=== PATIENT | male | born 1950 | race Caucasian/White ===

== ENCOUNTER 2023-08-29 11:39 | Outpatient (CLI) | payer MEDICARE, SELFPAY | END 2023-08-29 11:40 | disposition home or self-care (01) | LOC: AMB 09-04 06:27 | PROVIDERS: Visit Provider Family Medicine | DX: R41.82 Altered mental status, unspecified (principal); M43.6 Torticollis; R53.1 Weakness | CPT/HCPCS: A0425; A0427 ==

== ENCOUNTER 2023-08-29 12:12 | Observation (INO) | payer MEDICARE, SELFPAY ==
[2023-08-29] VITALS (21 sets, daily range): BP systolic 98–135; BP diastolic 63–89; PULSE 77–97; RESP 12–16; TEMP 35.8–36.5; O2SAT 94–99; BMI 31.0; BMI 30.6
--- NOTE | 2023-08-29 13:01 | CT_ITS ---
Patient: RENNY LICONA Facility:?[facility] Patient ID:?[id number] Site Patient ID:?[id number]. Site :?1950 Study:?CT-Head Angio W/ 95CC [id number]/31/2024 1:26:20 PM Ordering Physician:Royce Kent Final Report: CLINICAL HISTORY: Syncope, right-sided weakness. TECHNIQUE: Standard helical CT image acquisition through the head following the administration of intravenous contrast was performed. 3D and MIP reconstructions were performed at a separate workstation and permanently archived. COMPARISON: None available. 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 Scattered intracranial atherosclerotic disease without flow-limiting luminal stenosis. No evidence of cerebral aneurysm. No findings to suggest an arterial-venous shunting lesion. 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 This is of unknown chronicity. Please note that all CT scans at this facility use dose modulation, iterative reconstruction, and/or weight-based dosing when appropriate to reduce radiation dose to as low as reasonably achievable. Dictated by Sravan Zamora MD @ 08/29/2023 2:03:32 PM Signed by:?Sravan Zamora MD @08/29/2023 2:03:32 PM (Electronic Signature)
--- NOTE | 2023-08-29 13:01 | CT_ITS ---
Patient: RENNY LICONA Facility:?[facility] Patient ID:?[id number] Site Patient ID:?[id number]. Site :?1950 Study:?CT-Neck Angio Angio W/ 95CC [id number]/31/2024 1:26:17 PM Ordering Physician:Royce Kent Final Report: CLINICAL HISTORY: Right-sided weakness. TECHNIQUE: Standard helical CT image acquisition through the neck was performed after intravenous contrast bolus enhancement. 3D and MIP reconstructions were performed at a separate workstation and permanently archived. COMPARISON: None available. FINDINGS in the inferior pole of the : The origins of the great vessels from the aortic arch are patent. The common carotid arteries are patent. No significant luminal stenoses of the proximal ICAs by NASCET criteria. The more distal cervical segments of the ICAs are patent. Mild stenosis at the origin of left vertebral artery and moderate stenosis at the origin of the right vertebral artery. The cervical segments of the vertebral arteries are patent. 1.7 cm hypodense nodule in the inferior pole of the left lobe of the thyroid gland. IMPRESSION: 1. Moderate and mild stenoses at the origins of the right and left vertebral arteries, respectively. 2. 1.7 cm hypodense nodule in the inferior pole of the left lobe of the thyroid gland. Further assessment with thyroid ultrasound is recommended on a nonemergent basis. Please note that all CT scans at this facility use dose modulation, iterative reconstruction, and/or weight-based dosing when appropriate to reduce radiation dose to as low as reasonably achievable. Dictated by Sravan Zamora MD @ 08/29/2023 1:57:44 PM Signed by:?Sravan Zamora MD @08/29/2023 1:57:44 PM (Electronic Signature)
--- NOTE | 2023-08-29 13:03 | CT_ITS ---
Patient: RENNY LICONA Facility:?[facility] Patient ID:?[id number] Site Patient ID:?[id number]. Site :?1950 Study:?CT-Head STROKE PROTOCOL-08/29/2023 1:22:05 PM Ordering Physician:Royce Kent Final Report: CLINICAL HISTORY: Right-sided weakness. TECHNIQUE: Standard helical CT image acquisition through the head was performed. COMPARISON: None available. FINDINGS: No CT evidence of acute intracranial hemorrhage, extra-axial collection, mass effect or midline shift. Vargas-white matter differentiation is preserved. Mild generalized parenchymal volume loss with resultant prominence of cerebral sulci and the ventricular system. Patchy hypoattenuation in the white matter of both hemispheres likely reflects sequela of chronic small vessel ischemia. Intracranial atherosclerotic calcification. The calvarium is unremarkable. Thinning of the ocular lenses. Prior functional endoscopic sinonasal surgery. Mild mucosal thickening of the [id number]-[id number]-[id number]-right maxillary sinuses. Mucosal thickening of the residual ethmoid air cells. IMPRESSION: 1. No CT evidence of acute intracranial abnormality. 2. Senescent changes generalized parenchymal volume loss and findings likely reflecting sequela of chronic small-vessel ischemia. Please note that all CT scans at this facility use dose modulation, iterative reconstruction, and/or weight-based dosing when appropriate to reduce radiation dose to as low as reasonably achievable. Dictated by Sravan Zamora MD @ 08/29/2023 1:53:33 PM Signed by:?Sravan Zamora MD @08/29/2023 1:53:33 PM (Electronic Signature)
--- NOTE | 2023-08-29 13:06 | ED_ITS ---
HPI - General Adult General Chief complaint: Unspecified Complaint, Adult Stated complaint: Near syncopal Time Seen by Provider: 08/29/23 12:46 History of Present Illness HPI narrative: Patient is a 73 white male who 2 days ago had bunion surgery on his left leg, he has been off his anticoagulant, and yet to restart. He does have chronic atrial fibrillation. He was eating brunch today and passed out and family noticed he was weak on his right arm. He was brought in by ambulance. He feels fine at this time no chest pain no weakness. Family notes that he still a little slow to respond does not seem as sharp mentally as he has been after this event. He specifically denies any chest pain, breathing difficulty, leg swelling or pain. He has been taking Percocet for his bunion surgery, he takes about 3 a day. He has not had any ill effect to his knowledge from that. He reports he has been eating and drinking adequately. No other specific complaints. Patient is now awake alert and has no focal neurologic findings or complaint Related Data Home Medications Medication Instructions Recorded Confirmed allopurinol 100 mg tablet 200 mg PO DAILY 08/29/23 08/29/23 atenolol 100 mg tablet 100 mg PO DAILY 08/29/23 08/29/23 atorvastatin 20 mg tablet 20 mg PO DAILY 08/29/23 08/29/23 cephalexin 500 mg capsule 500 mg PO TID 08/29/23 08/29/23 doxycycline hyclate 100 mg capsule 100 mg PO BID 08/29/23 08/29/23 folic acid 1 mg tablet 1 mg PO DAILY 08/29/23 08/29/23 hydrochlorothiazide 50 mg tablet 50 mg PO DAILY 08/29/23 08/29/23 hydroxyzine pamoate 25 mg capsule 25 - 50 mg PO Q6H PRN 08/29/23 08/29/23 latanoprost 0.005 % eye drops 1 drp ophthalmic (eye) HS 08/29/23 08/29/23 methotrexate sodium 2.5 mg tablet 25 mg PO Q7D 08/29/23 08/29/23 oxycodone-acetaminophen 5 mg-325 1 - 2 tab PO Q6H PRN 08/29/23 08/29/23 mg tablet rivaroxaban 20 mg tablet (Xarelto) 20 mg PO QPM 08/29/23 08/29/23 Allergies Allergy/AdvReac Type Severity Reaction Status Date / Time Sulfa (Sulfonamide Allergy Unknown Hives Verified 08/29/23 12:16 Antibiotics) Review of Systems Status of ROS: Reports: 6 or more systems reviewed and unremarkable except as noted in History and below [facility] Social History Smoking Status: Never smoker How often do you have a drink containing alcohol: never AUDIT-C Alcohol total score: 0 Non-prescribed substance use: denies use Exam Narrative: Exam Narrative: Objective: Vital signs are within normal limits He is alert orient x3, he is mental status appears appropriate, he does struggle to find a but should be relatively common answer such as where his daughter lives and where he is having brunch. HEENT no facial asymmetry extra movements intact Mouth clear Neck is supple Chest clear Heart irregular regular with 2/6 systolic murmur no marked ectopy noted Abdomen benign soft Extremities he is moving all extremities well he is able to lift both legs off the ground he has got good hand grasp bilaterally no pronator drift extremity no drift with his arms extended, or legs elevated. Normal peripheral sensation Const: Vital Signs, click to edit/add: Vital Signs - 24 hr 08/29/23 12:15 08/29/23 12:33 08/29/23 12:35 Temperature 96.4 F L Pulse Rate 79 Pulse Rate [Pulse Oximeter] 77 Respiratory Rate 14 14 Blood Pressure 112/73 Blood Pressure [Le ft Upper Arm] 123/78 Pulse Oximetry 96 99 98 Oxygen Delivery Me thod Room Air 08/29/23 13:02 08/29/23 13:35 08/29/23 13:47 Temperature Pulse Rate 86 91 88 Pulse Rate [Pulse Oximeter] Respiratory Rate 12 14 12 Blood Pressure 119/87 121/89 109/70 Blood Pressure [Le ft Upper Arm] Pulse Oximetry 95 98 98 Oxygen Delivery Me thod Course Vital Signs Vital signs: Initial Vital Signs Temperature 96.4 F L 08/29/23 12:15 Temperature Source Temporal Artery Scan 08/29/23 12:15 Pulse Rate 77 08/29/23 12:15 Pulse Rhythm Regular 08/29/23 12:15 Respiratory Rate 14 08/29/23 12:15 Blood Pressure 123/78 08/29/23 12:15 Blood Pressure Mean 93 08/29/23 12:15 Blood Pressure Position Supine 08/29/23 12:15 Pulse Oximetry 96 08/29/23 12:15 Oxygen Delivery Method Room Air 08/29/23 12:15 Vital Signs Temperature 96.4 F L 08/29/23 12:15 Pulse Rate 77 08/29/23 12:15 Respiratory Rate 14 08/29/23 12:15 Blood Pressure 123/78 08/29/23 12:15 Pulse Oximetry 96 08/29/23 12:15 Oxygen Delivery Method Room Air 08/29/23 12:15 Temperature 96.4 F L 08/29/23 12:15 Pulse Rate 88 08/29/23 13:47 Respiratory Rate 12 08/29/23 13:47 Blood Pressure 109/70 08/29/23 13:47 Pulse Oximetry 98 08/29/23 13:47 Oxygen Delivery Method Room Air 08/29/23 12:15 Medications Administered Medications: Discontinued Medications Generic Name Dose Route Start Last Admin Trade Name Freq PRN Reason Stop Dose Admin Sodium Chloride 500 mls @ 500 mls/hr 08/29/23 13:01 08/29/23 14:25 0.9 % Sodium Chloride 500 Ml IV 08/29/23 14:00 Infused .Q1H ONE Infusion Levetiracetam 1,500 mg/ Sodium 115 mls @ 460 mls/hr 08/29/23 15:17 08/29/23 15:37 Chloride IVPB 08/29/23 15:18 460 mls/hr ONCE ONE Administration Medical Decision Making MDM Narrative Medical decision making narrative: [age] year white male with a history of recent bunion surgery, on Percocet for pain, with a history of some type of [employer] event in the past, with a brief syncopal episode with right-sided arm weakness. At this point stroke neurology was consulted he will get us stat CTA CT, head CT scan, would also get a CT scan of his chest to rule out PE given he has been off his Xarelto, and also get electrolytes and labs. Will give IV fluid. Disposition pending findings above Addendum 3:42 p.m.: The patient was felt by Dr. Stewart to have had a seizure. He recommended loading with Keppra which will be done here in the ER and then start 750 mg b.i.d.. Recommended an MRI scan as well. I think given the patient's unknown etiology of his syncopal episode and the fact that could be arrhythmia or other issue I think we should keep him in the hospital, do serial troponins, telemetry. Would recommend an MRI scan as an inpatient tomorrow. Discussed with Dr. Duval who kindly accepts in admission. Family was comfortable assessment and plan as well. Lab Data Labs: Lab Results 08/29/23 08/29/23 Range/Units 13:07 15:34 WBC 7.72 (4.50-11.00) K/uL RBC 3.37 L (4.30-5.90) m/uL Hgb 12.8 L (13.5-17.5) gm/dL Hct 37.2 (37.0-53.0) % MCV 110 H (80-100) fL MCH 38 H (26-34) pg MCHC 34 (32-36) gm/dL RDW Coeff of Dewayne 15.0 (11.5-15.5) % Plt Count 149 (140-440) K/uL Neut % (Auto) 75.1 H (42.0-72.0) % Lymph % (Auto) 17.6 L (20-44) % Antelope % (Auto) 5.3 (0.0-11.0) % Eos % (Auto) 1.2 (0.0-7.0) % Baso % (Auto) 0.5 (0.0-3.0) % Neut # (Auto) 5.80 (1.7-7.0) K/uL Lymph # (Auto) 1.40 (0.90-2.90) K/uL Antelope # (Auto) 0.40 (0.00-0.90) K/UL Eos # (Auto) 0.09 (0.00-0.50) K/uL Baso # (Auto) 0.04 (0.00-0.30) K/uL Abs Immat Gran (auto) 0.02 (0.00-0.30) K/uL Imm/Tot Granulo (auto) 0.3 % Diff Slide Review Acceptable Review (Acceptable) Sodium 129 L (135-149) mmol/L Potassium 3.7 (3.6-5.1) mmol/L Chloride 94 L (96-114) mmol/L Carbon Dioxide 28 (20-32) mmol/L Anion Gap 7 (7-15) mEq/L BUN 36 H (7-30) mg/dL Creatinine 1.4 (0.5-1.5) mg/dL Estimated Creat Clear 46.14 Estimated GFR 53 ml/min Glucose 100 (60-115) mg/dL Lactate 1.8 (0.5-1.9) mmol/L Calcium 9.5 (8.4-10.6) mg/dL Total Bilirubin 1.1 (0.1-1.5) mg/dL Direct Bilirubin 0.3 (0.0-0.5) mg/dL AST 46 H (12-35) U/L ALT 23 (4-50) U/L Alkaline Phosphatase 71 (40-150) U/L Troponin I < 0.01 L (0.01-0.04) ng/mL C-Reactive Protein 1.0 (0.5-1.0) mg/dL Total Protein 6.6 (6.0-8.3) g/dL Albumin 3.9 (3.3-5.0) g/dL Lab Acknowledgement Test Added Discharge Plan Discharge Clinical Impression: Syncope, Right arm weakness, Seizure Patient Disposition: Admitted As Observation
[2023-08-29 13:12] LABS: Lactate* 1.8 mmol/L (0.5-1.9)
[2023-08-29 13:13] LABS: Basophils Absolute Auto 0.04 K/uL (0.00-0.30); Basophils Percent Auto 0.5 % (0.0-3.0); Eosinophils Absolute Auto 0.09 K/uL (0.00-0.50); Eosinophils Percent Auto 1.2 % (0.0-7.0); Hematocrit 37.2 % (37.0-53.0); Hemoglobin* 12.8 gm/dL (13.5-17.5); Immature Granulocytes Abs Auto 0.02 K/uL (0.00-0.30); Immature Granulocytes Pct Auto 0.3 %; Lymphocytes Percent Auto 17.6 % (20-44); Mean Corpuscular HGB Conc 34 gm/dL (32-36); Mean Corpuscular Hemoglobin 38 pg (26-34); Mean Corpuscular Volume 110 fL (80-100); Monocytes Percent Auto 5.3 % (0.0-11.0); Neutrophils Percent Auto 75.1 % (42.0-72.0); Platelet Count* 149 K/uL (140-440); Red Blood Count 3.37 m/uL (4.30-5.90); White Blood Count* 7.72 K/uL (4.50-11.00)
[2023-08-29 13:18] LABS: Slide Review Acceptable Review (Acceptable); Slide Review Reflex Yes
[2023-08-29] MEDS: 0.9 % SODIUM CHLORIDE 500 ML 500 ML IV (13:25)
[2023-08-29 13:45] LABS: Albumin* 3.9 g/dL (3.3-5.0); Chloride* 94 mmol/L (96-114)
[2023-08-29 13:46] LABS: Potassium* 3.7 mmol/L (3.6-5.1); Sodium* 129 mmol/L (135-149)
[2023-08-29 13:48] LABS: Anion Gap 7 mEq/L (7-15); Aspartate Amino Transferase* 46 U/L (12-35); Bilirubin Direct* 0.3 mg/dL (0.0-0.5); Bilirubin Total* 1.1 mg/dL (0.1-1.5); Carbon Dioxide* 28 mmol/L (20-32); Creatinine* 1.4 mg/dL (0.5-1.5); Est. Creatinine Clearance* 46.14; Estimated Glomerular Filt Rate 53 ml/min; Total Protein* 6.6 g/dL (6.0-8.3)
[2023-08-29 13:49] LABS: Alanine Aminotransferase* 23 U/L (4-50); Alkaline Phosphatase* 71 U/L (40-150); Blood Urea Nitrogen* 36 mg/dL (7-30); Calcium* 9.5 mg/dL (8.4-10.6); Glucose* 100 mg/dL (60-115)
[2023-08-29 14:02] LABS: Troponin I* < 0.01 ng/mL (0.01-0.04)
[2023-08-29 15:59] LABS: Ethanol* < 0.01 % (0.01-0.03); Magnesium* 1.9 mg/dL (1.5-2.6)
[2023-08-29] MEDS: THIAMINE 100 MG TABLET PO (18:42)
[2023-08-29] MEDS: NICOTINE 21 MG PATCH 1 PATCH TRANSDERMA (18:42)
--- NOTE | 2023-08-29 19:13 | PC.NURSE ---
End of shift: Patient alert and oriented x4. [place]. refuses to wear hearing aides. Patient on CIWA, scored 0 3x. Patient on seizure precautions, pads in room. Patient on Tele, hx of AFIB. Patient can ambulate SBA to BR. Nicotine patch to left shoulder. IV in right AC- SL. Patient on RA tolerating a reg. diet.
--- NOTE | 2023-08-29 19:27 | PM.IMHP1 ---
Hospitalist- H&P: HPI History of Present Illness Time Seen by Provider: 18:00 Date Seen: 08/29/23 Chief complaint: Near syncopal Narrative: Remy Freire is a 73 year old male with a history of a small atrial fibrillation for which he is on chronic anticoagulation, seronegative rheumatoid arthritis for which he is on methotrexate, type 2 diabetes mellitus, history of alcohol abuse, falls, confusion, and gout who had an episode of syncope and right arm weakness this morning. His symptoms have now completely resolved. He had left foot bunion surgery 2 days ago for which he had had a preop physical a few days before that. He was feeling well and in his usual state of health. He had stopped his Xarelto in preparation for surgery and has not yet restarted it because he had what he describes is a lot of bleeding yesterday from the wound. He put fresh dressings on it yesterday and those have stayed clean. He went to a restaurant with his daughter and son-in-law this morning for Easter breakfast. They noticed that he suddenly put his head down and was rolling his head and shoulders like his neck was hurting. This time his right arm was not working at all. His family describes that his eyes were open but he was not responding to them. He seem to have slumped over. This lasted somewhere between 10 and 15 minutes and then resolved completely. He tells me that he had a similar episode a few weeks ago that was unwitnessed, but remembers that his neck was hurting in a similar fashion and then it suddenly went away. He has a history of alcohol abuse and his daughter spoke with me outside of his room, stating that he has abused alcohol his entire adult life and has had frequent falls and confusion as a result of it. She tells me that she finds bottles of black good whiskey all over the house and that she and her brother have noticed that he seems drunk at times even recently. I asked Remy about his alcohol use and he stated that he quit I here and a half ago. With the recent of his about 1 month ago, he has been tempted to drink again however he tells me he has been strong and has not. He came to the emergency department for this episode and was seen in consultation by Dr. Dela Cruz from the tele neurology for concern of stroke. 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 This is of unknown chronicity. Dr. Dela Cruz suspects that this was a focal complex seizure with neck stiffness prodrome and has recommended an MRI, onle Forman for 3 months, and follow up with Neurology as an outpatient. 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 - Chronic gout, unspecified, with tophus (tophi) (ICD-10) Methotrexate, longterm, current use ?Z79.631 - [facility]FP (current) use of antimetabolite agent (ICD-10) Anticoagulant long-term use ?Z79.01 - MCFP (current) use of anticoagulants (ICD-10) Seronegative rheumatoid arthritis ?M06.00 - Rheumatoid arthritis without rheumatoid factor, unspecified site (ICD-10) Hypomagnesemia ?E83.42 - Hypomagnesemia (ICD-10) Confusion ?R41.0 - Disorientation, unspecified (ICD-10) Falls ?W19.XXXA - Unspecified fall, initial encounter (ICD-10) Primary open angle glaucoma (POAG) of both eyes, moderate stage ?H40.1132 - Primary open-angle glaucoma, bilateral, moderate stage (ICD-10) Pseudoexfoliation (PXF) of left lens capsule ?H26.8 - Other specified cataract (ICD-10) Keratitis ?H16.9 - Unspecified keratitis (ICD-10) Meibomian gland dysfunction (MGD) of upper and lower lids of both eyes ?H02.88A - Meibomian gland dysfunction right eye, upper and lower eyelids (ICD-10) ?H02.88B - Meibomian gland dysfunction left eye, upper and lower eyelids (ICD-10) Thyroid nodule ?E04.1 - Nontoxic single thyroid nodule (ICD-10) Tobacco use ?Z72.0 - Tobacco use (ICD-10) Hypercholesterolemia ?E78.00 - Pure hypercholesterolemia, unspecified (ICD-10) Atrial fibrillation ?I48.91 - Unspecified atrial fibrillation (ICD-10) Hypertension ?I10 - Essential (primary) hypertension (ICD-10) Alcohol abuse ?F10.10 - Alcohol abuse, uncomplicated (ICD-10) Surgical History (Updated 08/29/23 @ 23:43 by Nata Duval MD) H/O foot surgery ?Z98.890 - Other specified postprocedural states (ICD-10) S/P YAG capsulotomy, right ?Z98.890 - Other specified postprocedural states (ICD-10) H/O vasectomy ?Z98.52 - Vasectomy status (ICD-10) H/O inguinal hernia repair ?Z98.890 - Other specified postprocedural states (ICD-10) ?Z87.19 - Personal history of other diseases of the digestive system (ICD-10) H/O arthroscopic knee surgery ?Z98.890 - Other specified postprocedural states (ICD-10) Hx of colonoscopy ?Z98.890 - Other specified postprocedural states (ICD-10) H/O cataract extraction ?Z98.49 - Cataract extraction status, unspecified eye (ICD-10) History of back surgery ?Z98.890 - Other specified postprocedural states (ICD-10) Family History (Updated 08/29/23 @ 19:51 by Nata Duval MD) Mother Stroke High blood pressure Father Stroke High blood pressure Social History (Updated 08/29/23 @ 20:03 by Nata Duval MD) Narrative: 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 of glioblastoma about a month ago. Patient reports 0.5 ppd tobacco use, his daughter and her say he smokes a cigarette every 20-30 minutes. His daughter also says he drinks a lot, has a long h/o EtOH abuse and she finds bottles around his house and he appears drunk at times. Patient states he quit alcohol 1.5 years ago and has been tempted to restart, but has stayed strong. He notes a lot of support from his neighbors. He denies recreational drug use. FULL CODE. What is your current living situation?: I presently have a place to live Problems where you live: no known problems Problems where you live details: No known problems In the past 12 months, utilities in danger of being shut off: no In past 12 months, lack of transportation kept you from medical appts, meetings, work, or getting things needed for daily living: no In the past 12 mos, have been you worried that your food would run out before you had money to buy more?: never true In the past 12 mos, the food you bought just didn't last and you didn't have money to buy more?: never true Highest level of school completed/degree received: high school graduate Smoking Status: Current every day smoker What tobacco products do you use: cigarettes Smoking packs per day: 1 Smoking cigarettes per day: 20.0 How often do you have a drink containing alcohol: 2-3 times a week Alcohol type: hard liquor Alcohol type details: Kids have found Whiskey hidden. Jul 11 2023. How many standard drinks containing alcohol do you have on a typical day: 5 or 6 How often do you have six or more drinks on one occasion: Weekly AUDIT-C Alcohol total score: 8 Non-prescribed substance use: denies use Caffeine: Yes How often does anyone, including family, friends and others, physically hurt you: never How often does anyone, including family, friends and others, insult or talk down to you: never How often does anyone, including family, friends and others, threaten you with harm: never How often does anyone, including family, friends and others, scream or curse at you: never service: No Meds Home Medications and Allergies Home Medications Medication Instructions Recorded Confirmed Type allopurinol 100 mg tablet 200 mg PO DAILY 08/29/23 08/29/23 History atenolol 100 mg tablet 100 mg PO DAILY 08/29/23 08/29/23 History atorvastatin 20 mg tablet 20 mg PO DAILY 08/29/23 08/29/23 History cephalexin 500 mg capsule 500 mg PO TID 08/29/23 08/29/23 History doxycycline hyclate 100 mg capsule 100 mg PO BID 08/29/23 08/29/23 History folic acid 1 mg tablet 1 mg PO DAILY 08/29/23 08/29/23 History hydrochlorothiazide 50 mg tablet 50 mg PO DAILY 08/29/23 08/29/23 History hydroxyzine pamoate 25 mg capsule 25 - 50 mg PO Q6H PRN 08/29/23 08/29/23 History latanoprost 0.005 % eye drops 1 drp ophthalmic (eye) HS 08/29/23 08/29/23 History methotrexate sodium 2.5 mg tablet 25 mg PO Q7D 08/29/23 08/29/23 History oxycodone-acetaminophen 5 mg-325 1 - 2 tab PO Q6H PRN 08/29/23 08/29/23 History mg tablet rivaroxaban 20 mg tablet (Xarelto) 20 mg PO QPM 08/29/23 08/29/23 History Home Medication Comments: Held Xarelto for surgery, has not restarted it yet because of bleeding from wound. Allergies Allergy/AdvReac Type Severity Reaction Status Date / Time Sulfa (Sulfonamide Allergy Unknown Hives Verified 08/29/23 12:16 Antibiotics) Exam Narrative: Exam Narrative: General: No acute distress. Awake alert oriented x3, but poor historian. Very [place]. HEENT: Normocephalic atraumatic, pupils equally round and reactive to light and accommodation. Oropharynx clear. Mucous membranes are moist. No cervical lymphadenopathy, thyromegaly or carotid bruits. No JVD. Cardiovascular: Irregularly irregular. No murmurs, gallops, or rubs. Chest: No increased work of breathing. Clear to auscultation bilaterally. No crackles or wheezes. Abdomen: Bowel sounds present. Soft, nondistended, nontender. No hepatosplenomegaly or masses. Extremities: Left foot bandages are clean, dry, and intact, there is no evidence of active bleeding on the bandages. Trace bilateral ankle edema, no cyanosis or clubbing. Skin: No jaundice, no pallor, no rashes. Neuro: There are no focal deficits. Romberg is negative. Cranial nerves 2-12 are intact. Extraocular movements are full. No nystagmus. No facial asymmetry. Tongue is midline. Peripheral vision and vision are grossly intact. Strength is 5/5 in all 4 extremities. Light touch sensation is intact in face body and extremities. Coordination is intact in upper and lower extremities. Const: Vital Signs, click to edit/add: Vital Signs - 24 hr 08/29/23 12:15 08/29/23 12:33 08/29/23 12:35 Temperature 96.4 F L Pulse Rate 79 Pulse Rate [Pulse Oximeter] 77 Respiratory Rate 14 14 Blood Pressure 112/73 Blood Pressure [Le ft Arm] Blood Pressure [Le ft Upper Arm] 123/78 Pulse Oximetry 96 99 98 Oxygen Delivery Me thod Room Air 08/29/23 13:02 08/29/23 13:35 08/29/23 13:47 Temperature Pulse Rate 86 91 88 Pulse Rate [Pulse Oximeter] Respiratory Rate 12 14 12 Blood Pressure 119/87 121/89 109/70 Blood Pressure [Le ft Arm] Blood Pressure [Le ft Upper Arm] Pulse Oximetry 95 98 98 Oxygen Delivery Me thod 08/29/23 14:02 08/29/23 14:17 08/29/23 14:35 Temperature Pulse Rate 82 89 83 Pulse Rate [Pulse Oximeter] Respiratory Rate 14 12 14 Blood Pressure 124/73 111/74 128/83 Blood Pressure [Le ft Arm] Blood Pressure [Le ft Upper Arm] Pulse Oximetry 97 95 98 Oxygen Delivery Me thod 08/29/23 14:47 08/29/23 15:02 08/29/23 15:47 Temperature Pulse Rate 96 94 86 Pulse Rate [Pulse Oximeter] Respiratory Rate 14 12 14 Blood Pressure 117/79 135/87 113/79 Blood Pressure [Le ft Arm] Blood Pressure [Le ft Upper Arm] Pulse Oximetry 97 95 98 Oxygen Delivery Me thod 08/29/23 16:02 08/29/23 16:17 08/29/23 16:33 Temperature 96.4 F L Pulse Rate 86 83 Pulse Rate [Pulse Oximeter] 77 Respiratory Rate 12 14 14 Blood Pressure 113/70 107/74 Blood Pressure [Le ft Arm] Blood Pressure [Le ft Upper Arm] 123/78 Pulse Oximetry 94 96 Oxygen Delivery Me thod 08/29/23 16:33 08/29/23 17:15 08/29/23 17:15 Temperature 97.7 F 97.6 F Pulse Rate Pulse Rate [Pulse Oximeter] 94 97 Respiratory Rate 14 14 14 Blood Pressure Blood Pressure [Le ft Arm] 129/63 129/63 Blood Pressure [Le ft Upper Arm] Pulse Oximetry 97 97 97 Oxygen Delivery Me od Room Air Room Air Room Air 08/29/23 17:33 08/29/23 18:17 08/29/23 18:23 Temperature 97.6 F 97.6 F Pulse Rate 83 Pulse Rate [Pulse Oximeter] 79 84 Respiratory Rate 14 14 Blood Pressure Blood Pressure [Le ft Arm] 120/85 99/67 Blood Pressure [Le ft Upper Arm] Pulse Oximetry 95 97 Oxygen Delivery Me thod Room Air Room Air [facility] H&P: Result Labs Labs: Short CBC 08/29/23 Range/Units 13:07 WBC 7.72 (4.50-11.00) K/uL Hgb 12.8 L (13.5-17.5) gm/dL Hct 37.2 (37.0-53.0) % Plt Count 149 (140-440) K/uL BMP 08/29/23 13:07 Sodium 129 L Potassium 3.7 Chloride 94 L Carbon Dioxide 28 BUN 36 H Creatinine 1.4 Glucose 100 Calcium 9.5 Cardiac Enzymes 08/29/23 Range/Units 13:07 Troponin I < 0.01 L (0.01-0.04) ng/mL Liver Function 08/29/23 Range/Units 13:07 Total Bilirubin 1.1 (0.1-1.5) mg/dL Direct Bilirubin 0.3 (0.0-0.5) mg/dL AST 46 H (12-35) U/L ALT 23 (4-50) U/L Alkaline Phosphatase 71 (40-150) U/L Albumin 3.9 (3.3-5.0) g/dL 08/29/2023 EKG: Atrial fibrillation, 81 beats per minute, low-voltage QRS, nonspecific ST abnormality. Study: CT Head STROKE PROTOCOL-08/29/2023 1:22:05 PM Ordering Physician: Mike Kent Final Report: CLINICAL HISTORY: Right-sided weakness. TECHNIQUE: Standard helical CT image acquisition through the head was performed. COMPARISON: None available. FINDINGS: No CT evidence of acute intracranial hemorrhage, extra-axial collection, mass effect or midline shift. Vargas-white matter differentiation is preserved. Mild generalized parenchymal volume loss with resultant prominence of cerebral sulci and the ventricular system. Patchy hypoattenuation in the white matter of both hemispheres likely reflects sequela of chronic small vessel ischemia. Intracranial atherosclerotic calcification. The calvarium is unremarkable. Thinning of the ocular lenses. Prior functional endoscopic sinonasal surgery. Mild mucosal thickening of the nxpw-[id number]-cmfq-right maxillary sinuses. Mucosal thickening of the residual ethmoid air cells. IMPRESSION: 1. No CT evidence of acute intracranial abnormality. 2. Senescent changes generalized parenchymal volume loss and findings likely reflecting sequela of chronic small-vessel ischemia. Please note that all CT scans at this facility use dose modulation, iterative reconstruction, and/or weight-based dosing when appropriate to reduce radiation dose to as low as reasonably achievable. Dictated by Sravan Zamora MD @ 08/29/2023 1:53:33 PM (Electronic Signature) Study: CT Neck Angio Angio W/ 95CC [id number]/31/2024 1:26:17 PM Ordering Physician: Mike Kent Final Report: CLINICAL HISTORY: Right-sided weakness. TECHNIQUE: Standard helical CT image acquisition through the neck was performed after intravenous contrast bolus enhancement. 3D and MIP reconstructions were performed at a separate workstation and permanently archived. COMPARISON: None available. FINDINGS in the inferior pole of the : The origins of the great vessels from the aortic arch are patent. The common carotid arteries are patent. No significant luminal stenoses of the proximal ICAs by NASCET criteria. The more distal cervical segments of the ICAs are patent. Mild stenosis at the origin of left vertebral artery and moderate stenosis at the origin of the right vertebral artery. The cervical segments of the vertebral arteries are patent. 1.7 cm hypodense nodule in the inferior pole of the left lobe of the thyroid gland. IMPRESSION: 1. Moderate and mild stenoses at the origins of the right and left vertebral arteries, respectively. 2. 1.7 cm hypodense nodule in the inferior pole of the left lobe of the thyroid gland. Further assessment with thyroid ultrasound is recommended on a nonemergent basis. Please note that all CT scans at this facility use dose modulation, iterative reconstruction, and/or weight-based dosing when appropriate to reduce radiation dose to as low as reasonably achievable. Dictated by Sravan Zamora MD @ 08/29/2023 1:57:44 PM (Electronic Signature) Study: CT Head Angio W/ 95CC [id number]/31/2024 1:26:20 PM Ordering Physician: Mike Kent Final Report: CLINICAL HISTORY: Syncope, right-sided weakness. TECHNIQUE: Standard helical CT image acquisition through the head following the administration of intravenous contrast was performed. 3D and MIP reconstructions were performed at a separate workstation and permanently archived. COMPARISON: None available. 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 Scattered intracranial atherosclerotic disease without flow-limiting luminal stenosis. No evidence of cerebral aneurysm. No findings to suggest an arterial-venous shunting lesion. 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 This is of unknown chronicity. Please note that all CT scans at this facility use dose modulation, iterative reconstruction, and/or weight-based dosing when appropriate to reduce radiation dose to as low as reasonably achievable. Dictated by Sravan Zamora MD @ 08/29/2023 2:03:32 PM (Electronic Signature) Assessment and Plan Assessment and plan (1) Seizure: Problem comment: - Suspected seizure. This may have been an alcohol withdrawal seizure. 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 This is of unknown chronicity. Patient has h/o afib and has been off anticoagulation for recent foot surgery. Will need MRI to rule out stroke. - Seizure precautions - MRI brain - ECHO, tele, serial trops - CIWA protocol - OT to do MOCA Status: Acute (2) Atrial fibrillation: Problem comment: - left foot bandages are clean with no evidence of bleeding. Restart Xarelto. Status: Chronic (3) Anticoagulant long-term use: Status: Chronic (4) Hypertension: Problem comment: - continue home medications Status: Chronic (5) Tobacco use: Problem comment: - start nicotine patch Status: Chronic (6) Methotrexate, long term care administrator, current use: Problem comment: For seronegative rheumatoid arthritis Status: Chronic (7) CKD (chronic kidney disease) stage 3, GFR 30-59 ml/min: Problem comment: Baseline creatinine appears to fluctuate, but mostly 1.3-1.4. On 08/17/2023 his creatinine was 1.91. - creatinine today is 1.4 and is at baseline Status: Acute (8) Type 2 diabetes mellitus: Problem comment: Diet controlled, he does not take any medications for this Status: Chronic (9) Thyroid nodule: Problem comment: PER [facility] RECORD: 13 mm nodule noted on CT. Per radiology recommendations, no further follow up needed. Incidental thyroid nodule detected on CT or MRI without suspicious findings. Applies to general population without limited life expectancy or significant comorbidities. Age greater than or equal to 35 years Less than 1.5 cm: No further evaluation. Greater than or equal to 1.5 cm: Evaluate with thyroid ultrasound. - Nodule 1.7cm 08/29/23 CT. US recommended on nonurgent basis. Status: Chronic (10) H/O foot surgery: Problem comment: R bunionectomy 05/2023 L bunionectomy 08/27/23 - Continue percocet prn for pain. PT/OT evaluation in am Status: Acute Plan Maybe needs neck imaging for neck spasms and recent fall
[2023-08-29 20:12] LABS: Troponin I* < 0.01 ng/mL (0.01-0.04)
[2023-08-29] MEDS: levETIRAcetam 500 MG TABLET 750 MG PO (21:30)
[2023-08-29] MEDS: cephALEXin 500 MG CAPSULE PO (21:31)
[2023-08-29] MEDS: SODIUM CHLORIDE 0.9 % (FLUSH) 10 ML SYRINGE 5 ML IVF (21:31)
[2023-08-29] MEDS: DOXYCYCLINE HYCLATE 100 MG PO (21:31)
[2023-08-29] MEDS: LATANOPROST 0.005% OPHTH 1 DROP EYE-BOTH (21:32)
[2023-08-30] VITALS (7 sets, daily range): BP systolic 113–128; BP diastolic 80–84; PULSE 80–99; RESP 14–16; TEMP 36.3–36.6; O2SAT 96–99
--- NOTE | 2023-08-30 05:39 | PC.NURSE ---
Pt alert and oriented x3. Afebrile. Pt denies pain, chest pain, headache, and N/V. Pt?s left foot dressing is CDI. Pt's CIWA scores have been 0.?Pt reported Coban wrap around ellis wrap was too tight, RN rewrapped Coban, with relief. Pt is up SBA, voiding, and passing gas. Pt slept intermittently throughout night. ??
[2023-08-30 06:36] LABS: Basophils Absolute Auto 0.05 K/uL (0.00-0.30); Basophils Percent Auto 0.9 % (0.0-3.0); Eosinophils Absolute Auto 0.12 K/uL (0.00-0.50); Eosinophils Percent Auto 2.1 % (0.0-7.0); Hematocrit 33.9 % (37.0-53.0); Hemoglobin* 11.6 gm/dL (13.5-17.5); Immature Granulocytes Abs Auto 0.01 K/uL (0.00-0.30); Immature Granulocytes Pct Auto 0.2 %; Lymphocytes Absolute Auto 1.27 K/uL (0.90-2.90); Mean Corpuscular HGB Conc 34 gm/dL (32-36); Mean Corpuscular Hemoglobin 38 pg (26-34); Mean Corpuscular Volume 112 fL (80-100); Monocytes Percent Auto 7.5 % (0.0-11.0); Neutrophils Absolute Auto 3.89 K/uL (1.7-7.0); Neutrophils Percent Auto 67.3 % (42.0-72.0); Platelet Count* 137 K/uL (140-440); RDW Coefficient of Variation % 15.3 % (11.5-15.5); Red Blood Count 3.03 m/uL (4.30-5.90); White Blood Count* 5.77 K/uL (4.50-11.00)
[2023-08-30 06:41] LABS: Chloride* 102 mmol/L (96-114); Potassium* 3.7 mmol/L (3.6-5.1); Sodium* 134 mmol/L (135-149)
[2023-08-30 06:44] LABS: Anion Gap 5 mEq/L (7-15); Blood Urea Nitrogen* 27 mg/dL (7-30); Calcium* 8.8 mg/dL (8.4-10.6); Carbon Dioxide* 27 mmol/L (20-32); Estimated Glomerular Filt Rate 80 ml/min; Glucose* 89 mg/dL (60-115); Slide Review Reflex No
[2023-08-30 07:03] LABS: Troponin I* < 0.01 ng/mL (0.01-0.04)
--- NOTE | 2023-08-30 07:15 | MR_ITS ---
Patient: RENNY LICONA Facility:?[facility] Patient ID:?[id number] Site Patient ID:?[id number]. Site :?[id number] Study:?MRI-Head WO/W DOTAREM 18ML-08/30/2023 9:22:03 AM Ordering Physician:PRAVIN Final Report: Indication: Syncope, right arm weakness. Technique: Multisequence multiplanar MRI of the brain prior to and following administration of 18 cc Dotarem intravenous contrast. Comparison: Correlated with CT head dated 08/29/2023. Findings: Motion degraded exam. No evidence of acute ischemia. No focus of abnormal susceptibility artifact. Scattered foci periventricular and subcortical T2 prolongation within the supratentorial white matter of both cerebral hemispheres. No focus of abnormal enhancement. Mild diffuse parenchymal volume loss. Flow is preserved within the larger intracranial arteries. Normal calvarial bone marrow signal intensity. Evidence of prior cataract surgery. Diffuse paranasal sinus mucosal thickening with fluid levels in the dependent maxillary sinuses. Impression: Motion degraded exam. Within this limitation: 1. No acute intracranial abnormality. Specifically, no evidence of acute ischemia. 2. Mild diffuse parenchymal volume loss and chronic small vessel ischemic changes. 3. Scattered paranasal sinus mucosal thickening with dependent maxillary sinus fluid levels, suggestive of acute on chronic sinus disease. Dictated by J Carlos De Guzman MD @ 08/30/2023 9:42:00 AM Signed by:?J Carlos De Guzman MD @08/30/2023 9:42:00 AM (Electronic Signature)
[2023-08-30] MEDS: DOXYCYCLINE HYCLATE 100 MG PO (09:38)
[2023-08-30] MEDS: FOLIC ACID 1 MG TABLET PO (09:38)
[2023-08-30] MEDS: allopurinoL 100 MG TABLET 200 MG PO (09:41)
[2023-08-30] MEDS: levETIRAcetam 500 MG TABLET 750 MG PO (09:41)
[2023-08-30] MEDS: atenoloL 50 MG TABLET 100 MG PO (09:43)
[2023-08-30] MEDS: cephALEXin 500 MG CAPSULE PO (09:43)
[2023-08-30] MEDS: ATORVASTATIN 10 MG TABLET 20 MG PO (09:43)
[2023-08-30] MEDS: hydroCHLOROthiazide 25 MG TABLET 50 MG PO (09:44)
[2023-08-30] MEDS: NICOTINE 21 MG PATCH 1 PATCH TRANSDERMA (09:45)
[2023-08-30] MEDS: SODIUM CHLORIDE 0.9 % (FLUSH) 10 ML SYRINGE 5 ML IVF (09:53)
--- NOTE | 2023-08-30 10:48 | NUTR.NU ---
RDN with diet education related to Heart Healthy Diet. Patient admitted with concern for stroke, now with suspected seizure. Has history of diabetes mellitus type 2 and HTN. Current weight 199 lb 8oz, Height 5ft 8in; BMI is 30.3 kg/m2. Patient reports weight has been stable recently. 100% intake at dinner 08/28. RDN offered patient Heart Healthy diet education, however patient declined at this time. He reports receiving education on this in the past. RDN encouraged patient to let staff know if he has any questions or concerns. RDN to follow-up prn.
--- NOTE | 2023-08-30 12:14 | P.DS_ITS ---
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 This is of unknown chronicity. - Remy has h/o afib and has been off anticoagulation for recent foot surgery, Xarelto restarted during stay - no recurrence of symptoms - troponins negative x3 - negative CIWA scoring during stay - no acute abnormalities on TTE per artificial breeding technician (formal cardiology read pending) - MRI: no acute ischemia, small vessel ischemic changes, paranasal sinus mucosal thickening (2) Syncope: Status: Acute (3) Type 2 diabetes mellitus: Status: Chronic Problem details: - diet controlled, last A1C <6 (4) Thyroid nodule: Status: Chronic Problem details: PER [facility] RECORD: 13 mm nodule noted on CT. Per radiology recommendations, no further follow up needed. Incidental thyroid nodule detected on CT or MRI without suspicious findings. Applies to general population without limited life expectancy or significant comorbidities. Age greater than or equal to 35 years Less than 1.5 cm: No further evaluation. Greater than or equal to 1.5 cm: Evaluate with thyroid ultrasound. - Nodule 1.7cm 08/29/23 CT. US recommended on nonurgent basis. - patient and daughter aware (5) Atrial fibrillation: Status: Chronic Problem details: - xarelto restarted during stay (6) Tobacco use: Status: Chronic Problem details: - treated with nicotine patch during stay (7) CKD (chronic kidney disease) stage 3, GFR 30-59 ml/min: Status: Acute Problem details: - Baseline creatinine appears to fluctuate, but mostly 1.3-1.4. On 08/17/2023 his creatinine was 1.91. - creatinine on admission is 1.4, 1.0 on day of discharge DS: Summary Hospital Course Hospital Course: Remy is admitted to the hospital on 08/28 after having an episode at home of decreased level of consciousness. Initial workup in ED reassuring; stroke neurology consulted and felt that symptoms likely represented a seizure. Patient has h/o ETOH use, denies any alcohol in the last 18 months or so (family worried that he may be drinking). No evidence of withdrawal, negative CIWAs. On admission, Keppra initiated. No further episodes during stay, no acute findings on MRI of brain. Telemetry remained baseline (rate controlled atrial fibrillation). Initial TTE read reassuring and patient requesting discharge home on 08/30/23 with close PCP f/u. Other notable findings during stay with details, above. Status at Discharge Functional status at discharge: independent ambulation Overall status at discharge: patient is progressing back to baseline Time Spent with Patient Time attestation: Total time spent providing and/or coordinating discharge services: Time spent: Greater than 30 minutes Specific discharge activities: Family updates, medication reconciliation, discussion with Stroke Neurology Exam Narrative: Exam Narrative: GEN: Alert and oriented, sitting comfortably in bedside chair HEENT: No scleral icterus CV: Rate controlled atrial fibrillation R: LCTA bilaterally without concerning wheezing Skin: No concerning skin lesions or rashes on exposed skin, L foot is wrapped with JEAN CLAUDE Neuro: EOMIs, tongue protrudes midline, no facial droop. Negative Romberg, no tremor, ambulating well without assistance Psych: Appropriate Const: Vital Signs, click to edit/add: Vital Signs - 24 hr 08/29/23 12:15 08/29/23 12:33 08/29/23 12:35 Temperature 96.4 F L Pulse Rate 79 Pulse Rate [Pulse Oximeter] 77 Respiratory Rate 14 14 Blood Pressure 112/73 Blood Pressure [Le ft Arm] Blood Pressure [Le ft Upper Arm] 123/78 Pulse Oximetry 96 99 98 Oxygen Delivery Me thod Room Air 08/29/23 13:02 08/29/23 13:35 08/29/23 13:47 Temperature Pulse Rate 86 91 88 Pulse Rate [Pulse Oximeter] Respiratory Rate 12 14 12 Blood Pressure 119/87 121/89 109/70 Blood Pressure [Le ft Arm] Blood Pressure [Le ft Upper Arm] Pulse Oximetry 95 98 98 Oxygen Delivery Me thod 08/29/23 14:02 08/29/23 14:17 08/29/23 14:35 Temperature Pulse Rate 82 89 83 Pulse Rate [Pulse Oximeter] Respiratory Rate 14 12 14 Blood Pressure 124/73 111/74 128/83 Blood Pressure [Le ft Arm] Blood Pressure [Le ft Upper Arm] Pulse Oximetry 97 95 98 Oxygen Delivery Me thod 08/29/23 14:47 08/29/23 15:02 08/29/23 15:47 Temperature Pulse Rate 96 94 86 Pulse Rate [Pulse Oximeter] Respiratory Rate 14 12 14 Blood Pressure 117/79 135/87 113/79 Blood Pressure [Le ft Arm] Blood Pressure [Le ft Upper Arm] Pulse Oximetry 97 95 98 Oxygen Delivery Me thod 08/29/23 16:02 08/29/23 16:17 08/29/23 16:33 Temperature 96.4 F L Pulse Rate 86 83 Pulse Rate [Pulse Oximeter] 77 Respiratory Rate 12 14 14 Blood Pressure 113/70 107/74 Blood Pressure [Le ft Arm] Blood Pressure [Le ft Upper Arm] 123/78 Pulse Oximetry 94 96 Oxygen Delivery Me thod 08/29/23 16:33 08/29/23 17:15 08/29/23 17:15 Temperature 97.7 F 97.6 F Pulse Rate Pulse Rate [Pulse Oximeter] 94 97 Respiratory Rate 14 14 14 Blood Pressure Blood Pressure [Le ft Arm] 129/63 129/63 Blood Pressure [Le ft Upper Arm] Pulse Oximetry 97 97 97 Oxygen Delivery Me od Room Air Room Air Room Air 08/29/23 17:33 08/29/23 18:17 08/29/23 18:23 Temperature 97.6 F 97.6 F Pulse Rate 83 Pulse Rate [Pulse Oximeter] 79 84 Respiratory Rate 14 14 Blood Pressure Blood Pressure [Le ft Arm] 120/85 99/67 Blood Pressure [Le ft Upper Arm] Pulse Oximetry 95 97 Oxygen Delivery Me od Room Air Room Air 08/29/23 19:45 08/29/23 19:45 08/29/23 23:00 Temperature 97.4 F L 97.4 F L Pulse Rate 91 Pulse Rate [Pulse Oximeter] 94 94 Respiratory Rate 16 16 Blood Pressure Blood Pressure [Le ft Arm] 113/76 113/76 Blood Pressure [Le ft Upper Arm] Pulse Oximetry 98 98 Oxygen Delivery Me od Room Air Room Air 08/29/23 23:00 08/29/23 23:00 08/29/23 23:00 Temperature 97.5 F L Pulse Rate Pulse Rate [Pulse Oximeter] 92 Respiratory Rate 16 16 16 Blood Pressure Blood Pressure [Le ft Arm] 98/72 Blood Pressure [Le ft Upper Arm] Pulse Oximetry 96 96 Oxygen Delivery Nh thod Room Air Room Air 08/30/23 02:49 08/30/23 08:00 08/30/23 08:02 Temperature 97.8 F 97.3 F L Pulse Rate 89 Pulse Rate [Pulse Oximeter] 99 80 Respiratory Rate 16 14 Blood Pressure Blood Pressure [Le ft Arm] 113/84 128/80 Blood Pressure [Le ft Upper Arm] Pulse Oximetry 96 Oxygen Delivery Nh thod Room Air Room Air 08/30/23 08:24 08/30/23 08:27 08/30/23 11:08 Temperature 97.3 F L 97.4 F L Pulse Rate Pulse Rate [Pulse Oximeter] 80 86 Respiratory Rate 14 16 Blood Pressure Blood Pressure [Le ft Arm] 128/80 114/83 Blood Pressure [Le ft Upper Arm] Pulse Oximetry 96 96 99 Oxygen Delivery Nh thod Room Air Room Air Room Air DS: Data Data Completed and Pending Labs on day of discharge: Labs from last 24 hours 08/30/23 08/29/23 08/29/23 06:09 19:38 15:34 WBC 5.77 RBC 3.03 L Hgb 11.6 L Hct 33.9 L MCV 112 H MCH 38 H MCHC 34 RDW Coeff of Dewayne 15.3 Plt Count 137 L Neut % (Auto) 67.3 Lymph % (Auto) 22.0 Stanley % (Auto) 7.5 Eos % (Auto) 2.1 Baso % (Auto) 0.9 Neut # (Auto) 3.89 Lymph # (Auto) 1.27 Stanley # (Auto) 0.40 Eos # (Auto) 0.12 Baso # (Auto) 0.05 Abs Immat Gran (auto) 0.01 Imm/Tot Granulo (auto) 0.2 Diff Slide Review Sodium 134 L Potassium 3.7 Chloride 102 Carbon Dioxide 27 Anion Gap 5 L BUN 27 Creatinine 1.0 Estimated Creat Clear 64.60 Estimated GFR 80 Glucose 89 Lactate Calcium 8.8 Magnesium Total Bilirubin Direct Bilirubin AST ALT Alkaline Phosphatase Troponin I < 0.01 L < 0.01 L C-Reactive Protein Total Protein Albumin Ethyl Alcohol Lab Acknowledgement Test Added 08/29/23 13:07 WBC 7.72 RBC 3.37 L Hgb 12.8 L Hct 37.2 MCV 110 H MCH 38 H MCHC 34 RDW Coeff of Dewayne 15.0 Plt Count 149 Neut % (Auto) 75.1 H Lymph % (Auto) 17.6 L Stanley % (Auto) 5.3 Eos % (Auto) 1.2 Baso % (Auto) 0.5 Neut # (Auto) 5.80 Lymph # (Auto) 1.40 Stanley # (Auto) 0.40 Eos # (Auto) 0.09 Baso # (Auto) 0.04 Abs Immat Gran (auto) 0.02 Imm/Tot Granulo (auto) 0.3 Diff Slide Review Acceptable Review Sodium 129 L Potassium 3.7 Chloride 94 L Carbon Dioxide 28 Anion Gap 7 BUN 36 H Creatinine 1.4 Estimated Creat Clear 46.14 Estimated GFR 53 Glucose 100 Lactate 1.8 Calcium 9.5 Magnesium 1.9 Total Bilirubin 1.1 Direct Bilirubin 0.3 AST 46 H ALT 23 Alkaline Phosphatase 71 Troponin I < 0.01 L C-Reactive Protein 1.0 Total Protein 6.6 Albumin 3.9 Ethyl Alcohol < 0.01 L Lab Acknowledgement Discharge Plan Discharge Disposition: Home, Self-Care Date of Admission: 08/29/23 16:36 Attending Provider on Discharge: Nasreen Keyes Consulting Providers: Laure Raymundo Primary Care Provider: Provider,Not a Local Condition: Improved Anticipated Discharge Date/Time: 08/30/23 10:53 Discharge Medications: New levetiracetam 500 mg Tablet 750 mg PO BID 30 Days Qty: 90 0RF Continued allopurinol 100 mg tablet 200 mg PO DAILY atorvastatin 20 mg tablet 20 mg PO DAILY atenolol 100 mg tablet 100 mg PO DAILY cephalexin 500 mg capsule 500 mg PO TID latanoprost 0.005 % drops 1 drp ophthalmic (eye) HS doxycycline hyclate 100 mg capsule 100 mg PO BID hydrochlorothiazide 50 mg tablet 50 mg PO DAILY folic acid 1 mg tablet 1 mg PO DAILY methotrexate sodium 2.5 mg tablet 25 mg PO Q7D oxycodone-acetaminophen 5-325 mg tablet 1 - 2 tab PO Q6H PRN hydroxyzine pamoate 25 mg capsule 25 - 50 mg PO Q6H PRN Xarelto 20 mg tablet 20 mg PO QPM Discharge Orders: Discharge Order (Routine); Ordered 08/30/23 Ordered By: Nasreen Keyes Patient Education: Levetiracetam (By mouth), Syncope (DC) Additional Instructions: Your MRI did not show a stroke and your echocardiogram (heart ultrasound was reassuring) - good news! Our specialty team is worried that your episode yesterday represented a seizure (plan below). There is a small nodule on your thyroid that will need an ultrasound at some point (nonurgent). See Dr. Birmingham for a followup as scheduled; he can set you up with a Neurologist who can do an EEG to determine your risk for seizures. In the meantime, you should stay on your Keppra (new seizure medication, [facility] [place] - Dr. Birmingham can refill in the future). We recommend no driving until your Neurology followup. No other changes to home medications, continue everything else as previous. Activity Detail: No driving until Neurology followup Discharge Diet: Regular Follow Up Appointments: Provider,Not a Local [Primary Care Provider] - 09/02/23 9:20 am ([facility] ([phone]) for follow-up. Appointments with (Conchita Sahu). He will need a referral to Neurology for an EEG given concern for seizure.) Forms: [employer] & other things you bake Info Instructions
--- NOTE | 2023-08-30 13:16 | PC.NURSE ---
Discharge: Patient pleasant and cooperative. Up with SBA. Patient recently had surgery on left foot, wearing boot on that foot as well as dressing and ellis wraps. Gait stable. Vitals stable and WNL, tele shows a-fib. Denies pain, nausea or SOB. Neuros appear baseline, no deficit noted, speech clear and coherent. CIWA scare 0. Discharge instructions given to daughter and patient, reviewed new med order, questions answered as needed. Patient discharged @1311 via wheelchair, daughter picked up at main entrance to take home.
--- NOTE | 2023-08-30 13:23 | PC.NURSE ---
Nicotine patch: Nicotine patch removed from left shoulder prior to discharge.
== END 2023-08-30 13:11 | disposition home or self-care (01) ==
LOC: ED 15:33 → MEDSURG 16:37
PROVIDERS: Family Medicine; Admitting Provider Family Medicine; Emergency Provider Family Medicine; Visit Provider Family Medicine
DX: R56.9 Unspecified convulsions (principal); I48.91 Unspecified atrial fibrillation; Z79.01 Long term (current) use of anticoagulants; I12.9 Hypertensive chronic kidney disease with stage 1 through stage 4 chronic kidney disease, or unspecified chronic kidney disease; E11.22 Type 2 diabetes mellitus with diabetic chronic kidney disease; N18.30 Chronic kidney disease, stage 3 unspecified; Z72.0 Tobacco use; Z79.631 Long term (current) use of antimetabolite agent; E04.1 Nontoxic single thyroid nodule; Z98.890 Other specified postprocedural states; R55 Syncope and collapse
CPT/HCPCS: 36415; 70450; 70496; 70498; 70553; 80048; 80076; 82077; 83605; 83735; 84443; 84484; 85025; 86140; 93005; 93306; 94761; 96361; 96365; 97116; 97161; 97165; 99285; G0378; G0427; A9270; A9575; J1953; J7030; Q9967; S4990